=== PATIENT | male | born 1995 | race Caucasian/White ===

== ENCOUNTER 2023-07-19 16:26 | Emergency (ER) | payer BC, SELFPAY ==
--- NOTE | ~2023-07-19 | XR_ITS ---
EXAMINATION: XR RIBS, LEFT, WITH PA CHEST CLINICAL INFORMATION: Pain status-post injury. COMPARISON: None available. TECHNIQUE: 5 views of the left ribs were obtained, together with a PA view of the chest. FINDINGS: Lungs are clear. No consolidation, pneumothorax, or pleural effusion. The cardiomediastinal silhouette and pulmonary vasculature are normal. Osseous structures are unremarkable. Ribs are intact. No fractures are identified. XR/XR ribs LT min 3V w CXR1V IMPRESSION: Unremarkable examination.
[2023-07-19 16:57] VITALS: BP 157/89; PULSE 89; RESP 17; TEMP 36.6; O2SAT 97; BMI 27.9
--- NOTE | 2023-07-19 16:58 | ED.FALL ---
HPI - Fall General Chief Complaint: General Medical Stated Complaint: fell left rib pain Time Seen by Provider: 07/19/23 18:15 History of Present Illness HPI Narrative: Patient is a 28 year old male who presents to the ED for evaluation of left sided rib pain s/p fall while wrestling around with friends at 02:00 while intoxicated. Pain exacerbated with movement, deep inspiration, lifting, cough. Related Data Allergies Allergy/AdvReac Type Severity Reaction Status Date / Time No Known Allergies Allergy Unverified 06/08/20 17:26 Review of Systems Review of Systems: Yes all other systems are reviewed and are negative [facility] Past Medical History Attestation statement: The following information was validated with the patient. Source: old records reviewed Social History Social History Advance Directives: No Advance Directives Information Provided: No Physical Exam Vital Signs: Vital Signs: Last Vital Signs Temp 98.2 F 07/19/23 17:42 Pulse 75 07/19/23 17:42 Resp 16 07/19/23 17:42 BP 150/90 H 07/19/23 17:42 Pulse Ox 98 07/19/23 17:42 O2 Del Method Room Air 07/19/23 17:42 BMI result Body Mass Index 27.9 Appearance: Alert.?Oriented to person, place and time. No acute distress.?Normal affect. Neck: Normal inspection.? Neck supple.?? CVS: Heart sounds normal. Normal heart rate and rhythm.? Pulses normal.?? Respiratory: No respiratory distress.? Lung sounds clear to auscultation bilaterally. Left lateral chest wall tenderness upon palpation, no deformity Abdomen: Soft and non-tender. Normoactive bowel sounds. Skin: Skin warm and dry.? Normal skin color.? Extremities: No lower extremity edema.? Neuro: Moves all extremities spontaneously. Sensation intact bilaterally. Ambulates with normal steady gait. Medical Decision Making Medical Decision Making [facility] Narrative: Patient is a 28-year-old male presents emergency department for evaluation of traumatic left lateral chest pain as per HPI. At the time my examination he is overall well-appearing. His tenderness upon palpation of the chest wall, no palpable deformities. No respiratory distress, speaking clear full sentences. No tachycardia, tachypnea, or hypoxia. History and physical examination is not consistent with ACS/PE/pneumonia. XR imaging obtained does not reveal any acute pulmonary process nor notable rib fractures. I reviewed these findings with patient. Discussed conservative treatment. Outpatient follow-up with primary care provider. Reviewed worrisome signs and symptoms that would warrant re-evaluation in the emergency department. All questions answered. Stable for discharge. Differential Diagnosis Differential Diagnoses: The differential diagnosis associated with the presentation includes (As noted above) Independent Interpretation I performed an independent interpretation of an: Plain X-Ray (I personally interpreted XR imaging and agree with radiologist impression, no acute pulmonary process, no fracture) Radiology Impression Discussion of test interpretation with radiology: I have reviewed the radiologist's reading. Radiologist Impression: XR/XR ribs LT min 3V w CXR1V IMPRESSION: Unremarkable examination. Prescription Management I considered prescription management with: Pain Medication (Acetaminophen/ibuprofen) Discharge Plan Discharge Clinical Impression: Rib pain Patient Disposition: Home, Self-Care Instructions: Chest Pain (ED) Additional Instructions: As discussed, your x-ray imaging today does not show evidence of any fracture to the ribs. This is very reassuring. Please be sure to rest over the next few days, apply ice/heat, You can take ibuprofen 200 mg, 3 tablets (600mg) every 6-8 hours as needed for pain, in addition to Tylenol 500 mg, 2 tablets (1,000mg) every 4-6 hours as needed for pain, but not to exceed 3 doses daily (3,000mg).? Follow-up with your primary care provider as needed. Return back to the emergency department any new or worsening symptoms or concerns. Referrals: ED Physician,Generic [Emergency Provider] -
[2023-07-19 17:42] VITALS: BP 150/90; PULSE 75; RESP 16; TEMP 36.8; O2SAT 98
== END 2023-07-19 18:31 | disposition home or self-care (01) ==
PROVIDERS: Emergency Provider Student in an Organized Health Care Education/Training Program
DX: R07.81 Pleurodynia (principal)
CPT/HCPCS: 71101; 99283

== ENCOUNTER 2024-03-26 12:39 | Outpatient (AMB) | payer BC, SELFPAY ==
[2024-03-26 13:13] VITALS: BP 142/82; PULSE 74; TEMP 36.7; O2SAT 97; BMI 28.2
--- NOTE | 2024-03-26 13:13 | MHC.OFFWIV ---
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 infection from new tattoo. Last Friday 03/16 Patient Tobacco Use Status: Current everyday Tobacco user Allergies No Known Allergies Allergy (Verified 03/26/24 13:13) Do you need a note to return to daycare/school/sports/work: No HPI HPI Comments History of Present Illness Details 28 y/o male patient who presents to walk in clinic with c/o Left upper arm skin irritation from a new Tattoo. Pt reports getting a Tattoo last week Friday. He noticed the area swelling, burning and tender. He does have other old Tattoos. Denies using a new Artist. PFSH Social History Patient Tobacco Use Status: Current everyday Tobacco user Review of Systems Const All systems reviewed & are unremarkable except as noted in HPI and below Physical Exam Vital Signs: Last Vital Signs Temp 98.1 F 03/26/24 13:13 Pulse 74 03/26/24 13:13 BP 142/82 H 03/26/24 13:13 Pulse Ox 97 03/26/24 13:13 Oxygen Delivery Method Room Air 03/26/24 13:13 BMI result Body Mass Index 28.2 Const General: comfortable and no acute distress Orientation/consciousness: patient oriented x3 Skin Other: Large patch of skin, dark ink with raised edges consisted with Black Ink allergy. General skin exam: dry skin and Excoriation Neuro General: patient oriented x3, gait normal and moves all extremities Psych Speech and movement: Normal speech and movement present Assessment & Plan Assessment & Plan (1) Contact dermatitis: Code(s): L25.9 - Unspecified contact dermatitis, unspecified cause Qualifiers: Contact dermatitis type: allergic Contact dermatitis trigger: dye Qualified Code(s): L23.4 - Allergic contact dermatitis due to dyes Plan: Exam consistent with Black Ink allergy (contact dermatitis). Prescribed Topical Steroid cream for 14 days. Medications: New triamcinolone acetonide 0.1% 1 appl topical BID 30 grams 0RF L23.4 - Allergic contact dermatitis due to dyes Coding Level of Care Code Est Pt Level 3 (14359) Diagnoses Allergic contact dermatitis due to dyes L23.4 Contact dermatitis type: allergic Contact dermatitis trigger: dye Time Spent (min) 15
== END 2024-03-26 14:31 | disposition home or self-care (01) ==
PROVIDERS: Visit Provider Nurse Practitioner Family
DX: L23.4 Allergic contact dermatitis due to dyes (principal)
CPT/HCPCS: 99213

== ENCOUNTER 2024-11-13 12:26 | Outpatient (REF) | payer BC, SELFPAY ==
--- OUTSIDE RECORDS SUMMARY | 2024-11-13 15:06 | XMS_ITS | Clinical Summary ---
Author Organization [place] [address] [address] [facility] Building Address [facility] [place] [address] Phone Care Team Providers Care Business Case Analyst Name Role Phone Rasta Schmidt MD Primary Care Provider [phone] Allergies Active Allergy Reactions Criticality Noted Date [...] Alcohol abuse 05/17/2017 Overview (09/10/2024): Discharged from [facility] in [place] 05/25/17 HTN (hypertension), benign 05/13/2017 Overweight (BMI 25.0-29.9) 12/26/2015 Acne 11/15/2010 Encounters Date Type Department Care Team Description 11/09/2024 11:30 AM EST Office Visit Internal Medicine - [address] [place] [address] Nikki Long NP HTN (hypertension), benign (Primary Dx); Anxiety; Overweight (BMI 25.0-29.9) 10/12/2024 Telephone Internal Medicine - [address] [place] [address] Rasta Schmidt MD Medication Problem from Last 3 Months Immunizations Name Administration Dates Next Due DTP 06/16/1996, 5,1994,07/10 DTaP (Infanrix) 6wks to less than 7yo 04/02/1999 [id number] (Pentacel) 2mo to less than 5yo 08/04/1995,1994,1994,07/10 [...] C Screening (05/23/2023) Hepatitis C Screening abstracted [facility] Provider HEALTH MAINTENANCE Final Result * (ABNORMAL) Lipid panel (05/23/2023) LDL/HDL Ratio 3 0 - 4 Triglycerides 53 0 - 150 mg/dL Cholesterol 243(A) 0 - 200 mg/dL HDL 98 >=40 mg/dL LDL Cholesterol 135(A) 0 - 100 mg/dL Blood Venous blood specimen / Unknown Result [facility] Provider LAB BLOOD ORDERABLES Elizabeth l Result from Last 3 Months or Most Recently Relevant to Health Maintenance [place] [place] [address] Care Teams Business Case Analyst Relationship Specialty Start Date End Date Rasta Schmidt MD [address] [place] [id number] PCP - General Internal Medicine 05/05/20
[2024-11-13 15:51] LABS: Appearance Urine Clear; Color Urine Yellow; Glucose Urine UA Negative (Negative); Leukocyte Esterase Urine Negative (Negative); Nitrite Urine Negative (Negative); PH 5.5 (5.0-9.0); Urine Blood Negative (Negative); Urine Ketones Negative (Negative); Urine Protein Negative (Neg-Trace)
[2024-11-14 09:47] LABS: CT PCR NOT DETECTED (Not Detect.); NG PCR NOT DETECTED (Not Detect.)
== END 2024-11-13 12:27 | disposition home or self-care (01) ==
LOC: HO.LAB 12:26
PROVIDERS: Visit Provider Physician Assistant Medical
DX: R30.0 Dysuria (principal); Z13.9 Encounter for screening, unspecified
CPT/HCPCS: 81003; 87491; 87591

== ENCOUNTER 2024-11-13 12:26 | Outpatient (AMB) | payer BC, SELFPAY ==
--- OUTSIDE RECORDS SUMMARY | 2024-11-13 12:28 | XMS_ITS | Clinical Summary ---
Author Organization [place] [address] [facility] Building Address [facility] [place] [address] Phone Care Team Providers Care De Icer Finisher Name Role Phone Rasta Schmidt MD Primary Care Provider [phone] Allergies Active Allergy Reactions Criticality Noted Date Comments Lavender Oil 11/21/2020 Medications amLODIPine (NORVASC) 10 mg tablet Take 1 tablet (10 mg total) by mouth 1 (one) time each day. 30 tablet 5 Active losartan (COZAAR) 50 mg tabletIndicatio ns:HTN (hypertension), benign Take 1 tablet (50 mg total) by mouth 1 (one) time each day. 90 tablet 1 5 05/08/20 25 Active busPIRone (BUSPAR) 7.5 mg tabletIndicatio ns:Anxiety Take 1 tablet (7.5 mg total) by mouth 2 (two) times a day. 60 each 2 5 02/08/20 25 Active losartan (COZAAR) 25 mg tablet Take 1 Tablet by mouth daily. 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 DMITRIY (generalized anxiety disorder) 05/08/2020 Panic attacks 05/08/2020 Alcohol abuse 05/17/2017 Overview (09/10/2024): Discharged from [facility] in [place] 05/25/17 HTN (hypertension), benign 05/13/2017 Overweight (BMI 25.0-29.9) 12/26/2015 Acne 11/15/2010 Encounters Date Type Department Care Team Description 11/09/2024 11:30 AM EST Office Visit Internal Medicine - [address] [place] [address] Nikki Long NP HTN (hypertension), benign (Primary Dx); Anxiety; Overweight (BMI 25.0-29.9) 10/12/2024 Telephone Internal Medicine - [address] [place] [address] Rasta Schmidt MD Medication Problem from Last 3 Months Immunizations Name Administration Dates Next Due DTP 06/16/1996, 5,1994,07/10 DTaP (Infanrix) 6wks to less than 7yo 04/02/1999 [id number] (Pentacel) 2mo to less than 5yo 08/04/1995,1994,1994,07/10 Hepatitis B Pediatric (Enger ix B; Recombivax HB) to less than 20 yo 01/29/1995,1994,1994 Influenza trivalent, 0.5mL, preservative free (Fluarix; FluLaval; Fluzone) ages 6mo and older (Afluria) 3 years and older 06/07/2024 MMR, measles mumps and rubel la Live (Priorix; M-M-R II) 12mo and older 04/02/1999,08/04/1995 Meningococcal Conjugate (Men veo) MenACWY 11yo to less than 19 yo 06/07/2024 Meningococcal MCV4P 09/12/2008 OPV 04/02/1999, 5,1994,07/10 Pfizer SARS-CoV-2 COVID-19, mRNA, LNP-S, preservative free 09/09/2021 Tdap Tetanus diptheria acell ular pertussis (Boostrix; Adacel) 7yo and older 11/21/2016,02/03/2006 Varicella live (Varivax) 12m o and older 10/27/2009,06/17/1999 Medical History Medical History Date Comments Unspecified otitis media 1994 DX:Unsp ecified otitis media; COMMENT: , , , Acute bronchiolitis 1994 DX:Acute bro nchiolitis; COMMENT: 94, Unspecified asthma(493.90) 11/06/2005 DX:Un specified asthma(493.90) Fracture, clavicle 10/25/2010 DX:Fracture, clavicle; COMMENT: Closed reduction with plate+screws 10/04/10 Attention deficit disorder of childhood 07/18/20 09 DX:Attention deficit disorder of childhood Family History Medical History Relation Name Comments Asthma Mother Depression Mother depression Hypertension Mother Other: HEART Mother's side MGGM (TRIPLE B YPASS) Alcohol/Drug Other maternal aunt Hypertension Paternal Grandfather Diabetes Son Relation Name Status Comments Father Alive 1973 Mother Alive 1975 ANNA MARIE Mother's side Other Paternal Grandfather Son Social History Tobacco Use Types Packs/Day Years Used Date Smoking Tobacco: Former Cigarettes 0.5 12.1 S tarted: 09/22/2012 Smokeless Tobacco: Never Alcohol Use Standard Drinks/Week Comments Yes 0 (1 standard drink = 0.6 oz pur e alcohol) Sex and Gender Information Value Date Recorded Sex Assigned at Not on file Legal Sex Male 11:05 AM EST Gender Identity Not on file Sexual Orientation Not on file Obstetrics History Last Filed Vital Signs Vital Sign Reading Time Taken Comments Blood Pressure 142/80 11/09/2024 11:42 AM EST Pulse 97 11/09/2024 11:22 AM EST Temperature - - Respiratory Rate - - Oxygen Saturation - - Inhaled Oxygen Concentration - - Weight 90.6 kg (199 lb 12.8 oz) 025 11:22 AM EST Height 175.3 cm (5' 9 ) 03/17/2024 8:34 AM EDT Body Mass Index 29.51 03/17/2024 8:34 AM EDT Plan of Treatment Health Maintenance Due Date Last Done Comments Hepatitis A Vaccines (1 of 2 - Risk 2-dose series) 2013 Depression Screening 08/20/2022 Social Influencers of Health Screening 08/20/2022 COVID-19 Vaccine ( season) 2024 09/09/2021 Hypertension/CHF/CAD Annual BMP Blood Test 02/12/2025 02/13/2024, 02/13/2024 DTaP,Tdap,and Td Vaccines (8 - Td or Tdap) 11/21/2026 11/21/2016, 02/03/2006, 04/02/1999, Additional history exists Cholesterol Screening (Lipid Panel) 05/23/2028 05/23/2023 Hepatitis B Vaccines Completed 01/29/1995, 1994, 1994 HIB Vaccines Completed 08/04/1995, 10/23, 1994, Additional history exists IPV Vaccines Completed 04/02/1999, 07/23, 1994, Additional history exists MMR Vaccines Completed 04/02/1999, 08/04/1995 Varicella Vaccines Completed 10/27/2009, 06/17/1999 HIV Screening Completed 05/23/2023 Hepatitis C Screening Completed 05/23/2023 Influenza Vaccine Completed 06/07/2024 Meningococcal ACWY Vaccine Aged Out 06/07/2024, No longer eligible based on patient's age to complete this topic HPV Vaccines Aged Out No longer eligi ble based on patient's age to complete this topic Meningococcal B Vacine Aged Out No lo nger eligible based on patient's age to complete this topic Pneumococcal Vaccine: Pediatrics (0 to 5 Years) and At-Risk Patients (6 to 64 Years) Aged Out No longer eligible based on patient's age to complete this topic RSV Immunization Patients Under 20 months Aged Out No longer eligible based on patient's age to complete this topic Procedures Procedure Name Priority Date/Time Associated Diagnosis Comments ANNUAL BMP BLOOD TEST Routine 02/13/2024 HEPATITIS C SCREENING Routine 05/23/2023 HIV SCREENING Routine 05/23/2023 LIPID PANEL Routine 05/23/2023 from Last 3 Months or Most Recently Relevant to Health Maintenance Results * Annual BMP Blood Test (02/13/2024) Annual BMP Blood Test abstracted us Historical Provider HEALTH MAINTENANCE Final Result * HIV Screening (05/23/2023) HIV Screening abstracted Historical Provider HEALTH MAINTENANCE Final Result * Hepatitis C Screening (05/23/2023) Hepatitis C Screening abstracted [facility] Provider HEALTH MAINTENANCE Final Result * (ABNORMAL) Lipid panel (05/23/2023) LDL/HDL Ratio 3 0 - 4 Triglycerides 53 0 - 150 mg/dL Cholesterol 243(A) 0 - 200 mg/dL HDL 98 >=40 mg/dL LDL Cholesterol 135(A) 0 - 100 mg/dL Blood Venous blood specimen / Unknown Result [facility] Provider LAB BLOOD ORDERABLES Elizabeth l Result from Last 3 Months or Most Recently Relevant to Health Maintenance [place] [address] Care Teams De Icer Finisher Relationship Specialty Start Date End Date Rasta Schmidt MD [address] [place] [id number] PCP - General Internal Medicine 05/05/20
--- NOTE | 2024-11-13 14:23 | MHC.OFFWIV ---
Intake Vital Signs 11/13/24 14:24 Height 5 ft 9 in Weight 199 lb BMI 29.4 BP 130/80 Blood Pressure Location Rt brachial Position Sitting Respiration 15 Pulse 82 Pulse Source Pulse Oximeter Temp 99.0 F Temp Source Oral Pulse Oximetry (%) 100 Oxygen Delivery Method Room Air Intake Visit Reasons: EP-Pain groin, difficulty urinating Intake Note: Pt is here today c/o lower back into groin pain and difficulty urinating Patient Tobacco Use Status: Tobacco use Unknown Allergies No Known Allergies Allergy (Verified 11/13/24 14:24) PFSH Social History Patient Tobacco Use Status: Tobacco use Unknown Physical Exam Vital Signs: Last Vital Signs Temp 99.0 F 11/13/24 14:24 Pulse 82 11/13/24 14:24 Resp 15 11/13/24 14:24 BP 130/80 11/13/24 14:24 Pulse Ox 100 11/13/24 14:24 Oxygen Delivery Method Room Air 11/13/24 14:24 BMI result Body Mass Index 29.4 Results AMB Urinalysis, Automated UA Leukoctes 0 Xiomy/uL Last Edit by Sammie Moses CMA on 11/13/24 14:54 UA Nitrite Negative Last Edit by Sammie Moses CMA on 11/13/24 14:54 UA Urobilinogen 0.2 mg/dL Last Edit by Sammie Moses CMA on 11/13/24 14:54 UA Protein 0 mg/dL Last Edit by Sammie Moses CMA on 11/13/24 14:54 UA pH 6.0 Last Edit by Sammie Moses CMA on 11/13/24 14:54 UA Blood 0 Irvin/uL Last Edit by Sammie Moses CMA on 11/13/24 14:54 UA Specific [place] 1.010 Last Edit by Sammie Moses CMA on 11/13/24 14:54 UA Ketone Negative Last Edit by Sammie Moses CMA on 11/13/24 14:54 UA Bilirubin 0 mg/dL Last Edit by Sammie Moses CMA on 11/13/24 14:54 UA Glucose 0 mg/dL Last Edit by Sammie Moses CMA on 11/13/24 14:54 Results Reviewed Results Reviewed: Laboratory Last Values Urine pH (Auto) 6.0 11/13/24 14:29 Specific [place] (Auto) 1.010 11/13/24 14:29 Urine Protein (Auto) 0 mg/dL 11/13/24 14:29 Glucose (UA)(Auto) 0 mg/dL 11/13/24 14:29 Urine Ketones (Auto) Negative 11/13/24 14:29 Urine Blood (Auto) 0 Irvin/uL 11/13/24 14:29 Urine Nitrite (Auto) Negative 11/13/24 14:29 Urine Bilirubin (Auto) 0 mg/dL 11/13/24 14:29 Urine Urobilinogen (Auto) 0.2 mg/dL 11/13/24 14:29 Leukocyte Esterase (Auto) 0 Xiomy/uL 11/13/24 14:29 Assessment & Plan Assessment & Plan Orders: Orders CT NG by PCR Today R30.0 - Dysuria AMB Urinalysis Automated Today Z13.9 - Encounter for screening, unspecified UA CC w/rflx Micro + Cult Today R30.0 - Dysuria Coding
[2024-11-13 14:24] VITALS: BP 130/80; PULSE 82; RESP 15; TEMP 37.2; O2SAT 100; BMI 29.4
== END 2024-11-13 15:19 | disposition home or self-care (01) ==
LOC: HO.HMCWIC 12:26
PROVIDERS: Visit Provider Physician Assistant Medical
DX: Z13.9 Encounter for screening, unspecified (principal)